=== PATIENT | female | born 2000 | race American Indian/Alaskan Native ===

== ENCOUNTER 2018-11-08 02:18 | Emergency (ER) | payer MEDICAID ==
[~2018-11-08] VITALS: Ht 170.2 cm; Wt 75.5 kg
[2018-11-08 02:37] VITALS: BP 143/104
[2018-11-08] MEDS ORDERED: BISA-155 PO (03:05)
[2018-11-08] MEDS ORDERED: cyclobenzaprine 10mg tablet PO ONE (03:05)
[2018-11-08] MEDS ORDERED: ondansetron 4mg rapidly disintigrating tab PO ONE (03:05)
[2018-11-08] MEDS ORDERED: ketorolac trometh inj. 60 MG/2 ML VIAL IM ONE (03:05)
[2018-11-08] MEDS ORDERED: acetaminophen 325mg tablet PO ONE (03:05)
[2018-11-08] MEDS ORDERED: CYCL-1 PO (03:06)
[2018-11-08] MEDS ORDERED: IBUP-1985 PO (03:06)
[2018-11-08] MEDS ORDERED: ACET-2615 PO (03:06)
== END 2018-11-08 03:36 | disposition home or self-care (01) ==
LOC: ER 02:20
DX: G89.29 Other chronic pain (principal); R10.9 Unspecified abdominal pain; M54.5 Low back pain; Z79.899 Other long term (current) drug therapy
CPT/HCPCS: 96372; 99284; J1885

== ENCOUNTER 2022-01-02 15:41 | Inpatient (IN) | payer MEDICAID ==
[~2022-01-02] VITALS: Ht 172.7 cm; Wt 88.0 kg
[~2022-01-02 15:41] MED LIST: BISA-155 PO; CYCL-1 PO; IBUP-1985 PO
[2022-01-02] MEDS ORDERED: metoclopramide 5 mg/ml inj IV ONE (15:55)
[2022-01-02] MEDS ORDERED: normal saline 1000ML IV soln IVB ONE ×4 (15:55→17:45)
[2022-01-02] MEDS ORDERED: diphenhydrAMINE 50 mg/ml inj IV ONE (15:55)
[2022-01-02] MEDS ORDERED: ketorolac trometh. 30mg/ml inj. IV ONE (16:10)
[2022-01-02 16:49] LABS: BASOPHILS % (AUTO) 0.3 % (0-1); EOSINOPHILS % (AUTO) 0.1 % (0-6); HEMATOCRIT 33.9 % (35.0-45.0); HEMOGLOBIN 10.9 g/dl (12.0-16.0); LYMPHOCYTES # (AUTO) 0.7 X10'3 (1.1-4.8); LYMPHOCYTES % (AUTO) 5.2 % (21-51); MEAN CORPUSCULAR HEMOGLOBIN 22.6 PG (27.0-31.0); MEAN CORPUSCULAR VOLUME 70.4 FL (78-98); MEAN PLATELET VOLUME 7.9 FL (7.4-10.4); MONOCYTES # (AUTO) 0.4 X10'3 (0-0.9); MONOCYTES % (AUTO) 2.9 % (2-12); NEUTROPHILS # (AUTO) 12.5 X10'3 (1.8-7.7); NEUTROPHILS % (AUTO) 91.5 % (42-75); PLATELET COUNT 218 X10'3 (140-440); RED BLOOD COUNT 4.82 X10'6 (4.20-5.60); RED CELL DISTRIBUTION WIDTH 18.5 % (11.5-14.5); WHITE BLOOD COUNT 13.6 X10'3 (4.5-11.0)
[2022-01-02 16:57] LABS: D-DIMER 3.04 MG/L FEU (0-0.50)
[2022-01-02 17:02] LABS: ALANINE AMINOTRANSFERASE 14 U/L (12-78); ALBUMIN 2.7 G/DL (3.4-5.0); ALBUMIN/GLOBULIN RATIO 0.7 (1.1-1.5); ALKALINE PHOSPHATASE 69 IU/L (46-116); ANION GAP 9 (8-16); ASPARTATE AMINO TRANSFERASE 17 U/L (10-37); BILIRUBIN,TOTAL 0.6 MG/DL (0.1-1.0); BLOOD UREA NITROGEN 6 MG/DL (7-18); BUN/CREATININE RATIO 6.9 (6.6-38.0); CALCIUM 8.6 MG/DL (8.5-10.1); CHLORIDE 102 MMOL/L (99-107); CREATININE 0.87 MG/DL (0.40-0.90); GLUCOSE 113 MG/DL (70-104); LIPASE < 50 U/L (73-393); POTASSIUM 3.1 MMOL/L (3.5-5.1); SODIUM 134 MMOL/L (135-145); TOTAL CARBON DIOXIDE 23.1 MMOL/L (24-32); TOTAL PROTEIN 6.8 G/DL (6.4-8.2); eGFR 81 ML/MIN
[2022-01-02] MEDS ORDERED: piperacillin/tazo 3.375gm/50ml 50 ML IV ONE (18:00)
[2022-01-02 18:15] LABS: HCG SERUM QL POSITIVE
[2022-01-02] MEDS ORDERED: morphine 2 MG/ML inj. syringe IV ONE ×2 (18:30→21:55)
[2022-01-02 19:17] LABS: CLARITY,URINE CLOUDY (Clear); COLOR,URINE YELLOW (Yellow); GLUCOSE, URINE NEGATIVE (Neg); KETONES,URINE 40 mg/dl (Neg); LEUKOCYTE ESTERASE ,URINE LARGE (Neg); NITRITES, URINE NEGATIVE (Neg); OCCULT BLOOD,URINE MODERATE (Neg); PH,URINE 6.5 (4.8-8.0); PROTEIN,URINE 100 mg/dl (Neg)
[2022-01-02 19:18] LABS: UA COLLECTION TYPE CLN CATCH MIDSTREAM
[2022-01-02 19:29] LABS: BACTERIA,URINE 4+ /HPF (Neg); MUCUS STRANDS FEW /LPF (Neg); SQUAMOUS EPITHELIAL CELL,UR MODERATE /LPF (FEW); WBC,URINE 20-30 /HPF (0-4)
[2022-01-02 19:30] LABS: TRANSITIONAL EPI CELLS,URINE FEW /HPF
--- NOTE | 2022-01-02 19:39 | NUR ---
Spoke with pharmacy and did not give morphine due to pt. being 17 weeks . Addendum: 01/02/22 at 2211 by JAIDEN May have spoken with pharmacist tech and not pharmacist with first order of morphine.
--- NOTE | 2022-01-02 20:21 | NUR ---
notified Dr. Cerrato about 102.5 temp and positive covid results.
[2022-01-02] MEDS ORDERED: iohexol 350MG/ML 100ml bottle IV ONE (21:17)
[2022-01-02] MEDS ORDERED: BEBTELOVIMAB 175 MG/2 ML VIAL IV ONE (21:40)
[2022-01-02] MEDS ORDERED: morphine 2 MG/ML inj. syringe IV PRN (22:05)
[2022-01-02] MEDS ORDERED: acetaminophen 325mg tablet PO PRN (22:05)
[2022-01-02] MEDS ORDERED: potassium Cl 40MEQ/1/2NS 520ml 520 ML IV PRN (22:05)
[2022-01-02] MEDS ORDERED: PERFLUTREN PROTEIN-A MICROSPHR (Optison) 0.22 MG/ML 3ML VIAL IV ONE (22:05)
[2022-01-02] MEDS ORDERED: magnesium 4gm in 100ml NS 100 ML IV PRN (22:05)
[2022-01-02] MEDS ORDERED: magnesium hydroxide 30ml (MOM) UD suspension PO PRN (22:05)
[2022-01-02] MEDS ORDERED: mag hydrox/Alum hydrox/simeth 30ml oral suspension PO PRN (22:05)
[2022-01-02] MEDS ORDERED: magnesium Cl slow-release 64mg tablet PO PRN (22:05)
[2022-01-02] MEDS: normal saline 1000ml 1,000 ML IV SCH (22:05)
--- NOTE | 2022-01-02 22:10 | NUR ---
spoke with [facility] pharmacist in regards of morphine and given okay and educated on minimal risks.
[2022-01-02] MEDS: potassium Cl 20 mEq SR tablet PO PRN (22:27)
[2022-01-02] MEDS ORDERED: NO HOME MEDS (23:20)
[2022-01-03] MEDS: piperacillin/tazo 3.375gm/50ml 50 ML IV SCH ×3 (00:19→16:00)
[2022-01-03 00:25] LABS: URINE AMPHETAMINE SCREEN NEGATIVE (Neg); URINE BARBITUATE SCREEN NEGATIVE (Neg); URINE BENZODIAZEPINES SCREEN NEGATIVE (Neg); URINE CANNABINOID SCREEN NEGATIVE (Neg); URINE COCAINE SCREEN NEGATIVE (Neg); URINE METHADONE SCREEN NEGATIVE (Neg); URINE OPIATE SCREEN POSITIVE (Neg); URINE PHENCYCLIDINE SCREEN NEGATIVE (Neg)
[2022-01-03] MEDS: potassium Cl 20 mEq SR tablet PO PRN ×3 (03:44→13:31)
[2022-01-03 04:13] LABS: BASOPHILS % (AUTO) 0.4 % (0-1); EOSINOPHILS % (AUTO) 0.1 % (0-6); HEMATOCRIT 26.6 % (35.0-45.0); HEMOGLOBIN 8.7 g/dl (12.0-16.0); LYMPHOCYTES # (AUTO) 0.9 X10'3 (1.1-4.8); LYMPHOCYTES % (AUTO) 9.8 % (21-51); MEAN CORPUSCULAR HEMOGLOBIN 23.1 PG (27.0-31.0); MEAN CORPUSCULAR HGB CONC 32.8 g/dL (33.0-36.5); MEAN CORPUSCULAR VOLUME 70.3 FL (78-98); MEAN PLATELET VOLUME 7.8 FL (7.4-10.4); MONOCYTES # (AUTO) 0.4 X10'3 (0-0.9); MONOCYTES % (AUTO) 4.3 % (2-12); NEUTROPHILS # (AUTO) 8.1 X10'3 (1.8-7.7); NEUTROPHILS % (AUTO) 85.4 % (42-75); PLATELET COUNT 168 X10'3 (140-440); RED BLOOD COUNT 3.78 X10'6 (4.20-5.60); RED CELL DISTRIBUTION WIDTH 18.4 % (11.5-14.5); WHITE BLOOD COUNT 9.5 X10'3 (4.5-11.0)
[2022-01-03 04:28] LABS: ALANINE AMINOTRANSFERASE 12 U/L (12-78); ALBUMIN 1.8 G/DL (3.4-5.0); ALBUMIN/GLOBULIN RATIO 0.6 (1.1-1.5); ALKALINE PHOSPHATASE 52 IU/L (46-116); ANION GAP 11 (8-16); ASPARTATE AMINO TRANSFERASE 14 U/L (10-37); BILIRUBIN,TOTAL 0.5 MG/DL (0.1-1.0); BLOOD UREA NITROGEN 5 MG/DL (7-18); BUN/CREATININE RATIO 5.3 (6.6-38.0); CALCIUM 7.3 MG/DL (8.5-10.1); CHLORIDE 108 MMOL/L (99-107); CREATININE 0.95 MG/DL (0.40-0.90); GLUCOSE 110 MG/DL (70-104); MAGNESIUM 1.4 MG/DL (1.5-2.4); SODIUM 138 MMOL/L (135-145); TOTAL CARBON DIOXIDE 19.5 MMOL/L (24-32); TOTAL PROTEIN 4.9 G/DL (6.4-8.2); eGFR 73 ML/MIN
[2022-01-03] MEDS: docusate sod 100mg capsule PO SCH ×3 (07:31→21:38)
[2022-01-03] MEDS: ondansetron/PF 4mg/2ml inj IV PRN ×3 (07:42→21:59)
[2022-01-03] MEDS: morphine 2 MG/ML inj. syringe IV PRN ×3 (07:42→21:59)
[2022-01-03] MEDS: heparin, porcine 5000 units/ml vial SQ SCH ×2 (07:43→21:38)
[2022-01-03] MEDS: K and/or MAG REPLACEMENT MC SCH ×2 (07:43→20:00)
[2022-01-03] MEDS: normal saline 1000ml 1,000 ML IV SCH ×2 (07:43→21:38)
[2022-01-03 10:00] VITALS: BP 86/52
--- NOTE | 2022-01-03 15:01 | NUR ---
promotional table spacer Page Accepted promotional table spacer Message: KIMANI ADRIANOMARIKA CHEEMA RM 341 CAN SHE GET AN ANTIDIARRHEAL MED ORDER? THANK YOU, LOW JACKSON Custom Responses: promotional table spacer Transaction number: [id number]
--- NOTE | 2022-01-03 16:00 | NUR ---
SPOKE WITH PATIENT RE CARE OF HER SERVICE DOG. OFFERED COUPLE TIMES TO HAVE BOYFRIEND COME AND TAKE DOG OUTSIDE. SHE STATED HER BOYFRIEND WILL COME GET HIM TOMORROW, SHE INSISTED THE DOG WAS FINE THROUGHT HE DAY AND THE NIGHT.
--- NOTE | 2022-01-03 17:31 | NUR ---
promotional table spacer promotional table spacer Page Sent promotional table spacer PAGER ID: [phone] MESSAGE: RE ADRIANO CHEEMA RM 341 PLEASE CALL RE DISCHARGE ORDER VS TRANSFER ETC THANK YOU LOW JACKSON
[2022-01-03 18:00] VITALS: BP_SYST 101; BP_SYST 91; BP_DIAS 54; BP_DIAS 69
--- NOTE | 2022-01-03 18:07 | NUR ---
promotional table spacer promotional table spacer Page Sent promotional table spacer PAGER ID: [phone] MESSAGE: KIMANI STEPHANEPadmini CHEEMA RM 341 VS 101/69 HR 106 O2% 97. HOUSE SUP CALLED ASKED YOU TO CANCEL THE DISCHARGE ORDER THANK YOU AND
--- NOTE | 2022-01-03 18:20 | NUR ---
Patient in room [facility]JI 341. I have received report from RENETTA Encarnacion and had the opportunity to ask questions and assume patient care.
[2022-01-03 21:00] VITALS: BP 100/58
[2022-01-03 21:01] VITALS: BP 98/63
[2022-01-03 21:02] VITALS: BP 107/66
[2022-01-03 22:00] VITALS: BP 101/63
[2022-01-04] MEDS: piperacillin/tazo 3.375gm/50ml 50 ML IV SCH ×2 (00:18→08:00)
[2022-01-04] MEDS: normal saline 1000ml 1,000 ML IV SCH (03:04)
[2022-01-04] MEDS: ondansetron/PF 4mg/2ml inj IV PRN ×2 (04:41→13:17)
[2022-01-04] MEDS: morphine 2 MG/ML inj. syringe IV PRN ×2 (04:41→13:17)
[2022-01-04 06:15] LABS: BASOPHILS # (AUTO) 0.1 X10'3 (0-0.2); BASOPHILS % (AUTO) 0.7 % (0-1); EOSINOPHILS # (AUTO) 0.1 X10'3 (0-0.9); EOSINOPHILS % (AUTO) 1.4 % (0-6); HEMATOCRIT 27.5 % (35.0-45.0); HEMOGLOBIN 9.2 g/dl (12.0-16.0); LYMPHOCYTES % (AUTO) 10.8 % (21-51); MEAN CORPUSCULAR HEMOGLOBIN 23.2 PG (27.0-31.0); MEAN CORPUSCULAR HGB CONC 33.3 g/dL (33.0-36.5); MEAN CORPUSCULAR VOLUME 69.8 FL (78-98); MEAN PLATELET VOLUME 7.9 FL (7.4-10.4); MONOCYTES # (AUTO) 0.3 X10'3 (0-0.9); MONOCYTES % (AUTO) 3.8 % (2-12); NEUTROPHILS # (AUTO) 7.5 X10'3 (1.8-7.7); NEUTROPHILS % (AUTO) 83.3 % (42-75); PLATELET COUNT 201 X10'3 (140-440); RED BLOOD COUNT 3.94 X10'6 (4.20-5.60); RED CELL DISTRIBUTION WIDTH 18.4 % (11.5-14.5)
[2022-01-04 06:34] LABS: ALANINE AMINOTRANSFERASE 14 U/L (12-78); ALBUMIN 1.9 G/DL (3.4-5.0); ALBUMIN/GLOBULIN RATIO 0.5 (1.1-1.5); ALKALINE PHOSPHATASE 67 IU/L (46-116); ANION GAP 10 (8-16); ASPARTATE AMINO TRANSFERASE 10 U/L (10-37); BILIRUBIN,TOTAL 0.5 MG/DL (0.1-1.0); BLOOD UREA NITROGEN 5 MG/DL (7-18); BUN/CREATININE RATIO 5.5 (6.6-38.0); CALCIUM 8.1 MG/DL (8.5-10.1); CHLORIDE 105 MMOL/L (99-107); CREATININE 0.91 MG/DL (0.40-0.90); GLUCOSE 84 MG/DL (70-104); MAGNESIUM 1.7 MG/DL (1.5-2.4); POTASSIUM 3.2 MMOL/L (3.5-5.1); SODIUM 135 MMOL/L (135-145); TOTAL CARBON DIOXIDE 19.8 MMOL/L (24-32); TOTAL PROTEIN 5.5 G/DL (6.4-8.2); eGFR 77 ML/MIN
--- NOTE | 2022-01-04 06:39 | NUR ---
Problems reprioritized. Patient report given, questions answered & plan of care reviewed with RENETTA Encarnacion.
[2022-01-04] MEDS: heparin, porcine 5000 units/ml vial SQ SCH (08:00)
[2022-01-04] MEDS: K and/or MAG REPLACEMENT MC SCH (08:00)
[2022-01-04] MEDS: docusate sod 100mg capsule PO SCH (08:00)
[2022-01-04] MEDS: potassium Cl 20 mEq SR tablet PO PRN (08:30)
--- NOTE | 2022-01-04 13:06 | NUR ---
primary nurse noticed that there was not updated discharge in pt chart, called pillowcase sewer about it, case manage said that she has written d/c orders from MD to transfer pt to [facility] and that the computer transfer can be updated later
== END 2022-01-04 13:27 | disposition short-term general hospital (02) | DRG 566 ==
LOC: ER 15:41 → ED HOLD 22:11 → SUR 3N 01-03 07:12
PROVIDERS: ADMIT Internal Medicine; ATTEND Internal Medicine
PROC: XW033H6 Introduction of Other New Technology Monoclonal Antibody into Peripheral Vein, Percutaneous Approach, New Technology Group 6 (ICD-10-PCS; principal; 2022-01-02)
PROC: B32T1ZZ Computerized Tomography (CT Scan) of Left Pulmonary Artery using Low Osmolar Contrast (ICD-10-PCS; 2022-01-02)
PROC: B3201ZZ Computerized Tomography (CT Scan) of Thoracic Aorta using Low Osmolar Contrast (ICD-10-PCS; 2022-01-02)
PROC: B32S1ZZ Computerized Tomography (CT Scan) of Right Pulmonary Artery using Low Osmolar Contrast (ICD-10-PCS; 2022-01-02)
DX: O98.812 Other maternal infectious and parasitic diseases complicating pregnancy, second trimester (principal); U07.1 COVID-19; A41.9 Sepsis, unspecified organism; I27.21 Secondary pulmonary arterial hypertension; O23.42 Unspecified infection of urinary tract in pregnancy, second trimester; E87.6 Hypokalemia; O99.612 Diseases of the digestive system complicating pregnancy, second trimester; O99.012 Anemia complicating pregnancy, second trimester; O98.512 Other viral diseases complicating pregnancy, second trimester; D50.9 Iron deficiency anemia, unspecified; K80.20 Calculus of gallbladder without cholecystitis without obstruction; Z28.310 Unvaccinated for COVID-19; Z3A.19 19 weeks gestation of pregnancy; Z79.899 Other long term (current) drug therapy
CPT/HCPCS: 36415; 71045; 71275; 76700; 76801; 76870; 80053; 80305; 81001; 83605; 83690; 83735; 84145; 84484; 84703; 85025; 85379; 87040; 87077; 87088; 87186; 87635; 93005; 93306; 93976; 99285; C9803; G0378; J1200; J1644; J1885; J2270; J2405; J2543; J2765; J3490; J7030; Q0222; Q9967

== ENCOUNTER 2024-06-14 18:18 | Emergency (ER) | payer MEDICAID ==
[~2024-06-14] VITALS: Ht 170.2 cm; Wt 84.1 kg
[~2024-06-14 18:18] MED LIST changes: -BISA-155 PO; -CYCL-1 PO; -IBUP-1985 PO; +NO HOME MEDS
[2024-06-14 19:19] LABS: BASOPHILS # (AUTO) 0.1 X10'3 (0-0.2); EOSINOPHILS # (AUTO) 0.5 X10'3 (0-0.9); MONOCYTES # (AUTO) 0.5 X10'3 (0-0.9); WHITE BLOOD COUNT 11.8 X10'3 (4.5-11.0)
[2024-06-14 19:21] LABS: BASOPHILS % (AUTO) 0.7 % (0-1); HEMATOCRIT 36.8 % (35.0-45.0); LYMPHOCYTES % (AUTO) 25.6 % (21-51); MEAN CORPUSCULAR HEMOGLOBIN 23.5 PG (27.0-31.0); MEAN CORPUSCULAR HGB CONC 32.5 g/dL (33.0-36.5); MEAN CORPUSCULAR VOLUME 72.3 FL (78-98); MEAN PLATELET VOLUME 7.9 FL (7.4-10.4); MONOCYTES % (AUTO) 3.9 % (2-12); NEUTROPHILS # (AUTO) 7.8 X10'3 (1.8-7.7); NEUTROPHILS % (AUTO) 65.8 % (42-75); PLATELET COUNT 494 X10'3 (140-440); RED CELL DISTRIBUTION WIDTH 18.2 % (11.5-14.5)
[2024-06-14 19:28] LABS: ALANINE AMINOTRANSFERASE 26 U/L (12-78); ALBUMIN 3.6 G/DL (3.4-5.0); ALKALINE PHOSPHATASE 78 IU/L (46-116); ANION GAP 9 (8-16); ASPARTATE AMINO TRANSFERASE 11 U/L (10-37); BILIRUBIN,TOTAL 0.3 MG/DL (0.1-1.0); BLOOD UREA NITROGEN 10 MG/DL (7-18); BUN/CREATININE RATIO 11.6 (10.0-20.0); CALCIUM 8.9 MG/DL (8.5-10.1); CHLORIDE 105 MMOL/L (99-107); CREATININE 0.86 MG/DL (0.40-0.90); GLUCOSE 85 MG/DL (70-104); LIPASE 29 U/L (16-77); POTASSIUM 3.6 MMOL/L (3.5-5.1); SODIUM 142 MMOL/L (135-145); TOTAL CARBON DIOXIDE 27.7 MMOL/L (24-32); TOTAL PROTEIN 7.2 G/DL (6.4-8.2); eCRCL 96 ML/MIN; eGFR 80 ML/MIN
[2024-06-14 20:42] LABS: BILIRUBIN,URINE NEGATIVE (Neg); CLARITY,URINE CLOUDY (Clear); COLOR,URINE YELLOW (Yellow); GLUCOSE, URINE NEGATIVE (Neg); KETONES,URINE NEGATIVE (Neg); LEUKOCYTE ESTERASE ,URINE SMALL (Neg); NITRITES, URINE NEGATIVE (Neg); OCCULT BLOOD,URINE LARGE (Neg); PROTEIN,URINE 100 mg/dl (Neg); UROBILINOGEN,URINE 0.2 E.U/dL (0.2-1.0)
[2024-06-14 20:44] LABS: URINE HCG NEGATIVE (NEG)
[2024-06-14 20:48] LABS: UA COLLECTION TYPE CLN CATCH MIDSTREAM
[2024-06-14 20:53] LABS: BACTERIA,URINE 1+ /HPF (Neg); RBC,URINE TNTC /HPF (0-2); SQUAMOUS EPITHELIAL CELL,UR FEW /LPF (FEW); WBC,URINE 50-100 /HPF (0-4)
[2024-06-14] MEDS ORDERED: CIPR-260 PO (21:22)
[2024-06-14 21:44] VITALS: BP 132/82; PULSE 99; RESP 16; TEMP 98.6; O2SAT 99
== END 2024-06-14 21:52 | disposition home or self-care (01) ==
LOC: ER 18:19
DX: N39.0 Urinary tract infection, site not specified (principal)
CPT/HCPCS: 51798; 80053; 81001; 81025; 83690; 85025; 87088; 99284

== ENCOUNTER 2024-10-16 17:04 | Emergency (ER) | payer MEDICAID ==
[~2024-10-16] VITALS: Ht 170.2 cm; Wt 65.5 kg
[~2024-10-16 17:04] MED LIST changes: +CIPR-260 PO
[2024-10-16 17:19] VITALS: BP 124/91; TEMP 98.5
--- NOTE | 2024-10-16 18:55 | Physician Documentation ---
History of Present Illness ~ Chief Complaint: Flu Symptoms Stated Complaint: MULTIPLE SYMPTOMS HPI This is a 24-year-old female that presents to the emergency department for evaluation of COVID like symptoms with chest discomfort. Medication Reconciliation Allergies: Coded Allergies: No Known Allergies (Unverified , 06/14/24) Scheduled Ciprofloxacin HCl (Cipro), 1 TAB PO Q12H Miscellaneous Medications Home Med List (No Home Medications), (Reported) Past Medical History Past Medical History: Cholelithiasis Past Surgical History: no surgical history Patient History: Patient reports no known family medical history. Alcohol Use: None Drug Use: none Lives In: Home Physical Exam Vital Signs: Temperature: 98.5, Source: Temporal, Heart Rate: 107, Respiratory Rate: 16, BP: 124/91, Pulse Oximetry: 100, Weight: 65.500 Progress Results/Orders Results/Orders Orders - KONSTANTIN KING Stat Ekg (10/16/24 18:50) Vital Signs 10/16/24 17:19 Temp 98.5 Pulse 107 Resp 16 B/P (MAP) 124/91 Pulse Ox 100 Departure Referrals: NO PRIMARY CARE PROVIDER (PCP) KONSTANTIN KING Oct 16, 2024 18:55
--- NOTE | 2024-10-16 19:03 | ELECTROCARDIOGRAPH REPORT ---
[facility] Test Date: 2024-10-16 Test Time: 19:01:05 Pat Name: FEDERICO CHEEMA Department: [facility] Patient ID: [facility]-[id number] Room: Gender: F Asw/[employer]uw [employer]: : 2000 Requested By: KONSTANTIN KING Order Number: [id number] Reading MD: Measurements Intervals [place] Rate: 98 P: 43 UT: 139 QRS: 65 QRSD: 82 T: 48 QT: 330 QTc: 422 Interpretive Statements Sinus rhythm Please click the below link to view image of tracing.
[2024-10-16 19:11] VITALS: PULSE 92; RESP 15; O2SAT 99
== END 2024-10-16 23:45 | disposition left against medical advice (07) ==
LOC: ER 17:05
DX: J11.1 Influenza due to unidentified influenza virus with other respiratory manifestations (principal); R07.9 Chest pain, unspecified; Z53.21 Procedure and treatment not carried out due to patient leaving prior to being seen by health care provider; Z20.822 Contact with and (suspected) exposure to COVID-19
CPT/HCPCS: 36415; 87811; 93005; 99284